=== PATIENT | female | born 1980 | race Caucasian/White ===

== ENCOUNTER → 2021-03-19 | Outpatient (CLI) | payer BC ==
[~2021-03-19] MED LIST: NORCO 5-325 TA1 EACH PO
== END ==
LOC: LAB 18:49 → GENOP 18:49
DX: Z20.822 Contact with and (suspected) exposure to COVID-19 (principal)
CPT/HCPCS: U0003

== ENCOUNTER → 2021-07-24 | Outpatient (CLI) | payer BC | LOC: EROP 07:09 | DX: U07.1 COVID-19 (principal) | CPT/HCPCS: U0002 ==